=== PATIENT | male | born 1940 ===

== ENCOUNTER 2017-11-27 01:22 | Outpatient (CLI) | payer MEDICARE, BC | END 2017-11-27 23:59 | disposition home or self-care (01) | LOC: DIABETIC 01:22 | PROVIDERS: ATTEND Family Medicine | DX: E11.9 Type 2 diabetes mellitus without complications (principal); Z79.82 Long term (current) use of aspirin; Z79.84 Long term (current) use of oral hypoglycemic drugs; Z79.899 Other long term (current) drug therapy; Z79.01 Long term (current) use of anticoagulants | CPT/HCPCS: G0108 ==